=== PATIENT | female | born 1960 | race Caucasian/White ===

== ENCOUNTER 2021-02-20 23:54 | Emergency (ER) | payer BC ==
[~2021-02-20] VITALS: Ht 172.7 cm; Wt 110.0 kg
[2021-02-21 00:01] VITALS: BP 179/84
[2021-02-21] MEDS ORDERED: diphenhydrAMINE 25mg capsule PO ONE (00:05)
[2021-02-21] MEDS ORDERED: AZIT-63 PO (02:12)
== END 2021-02-21 02:17 | disposition home or self-care (01) ==
LOC: ER 23:55
DX: K04.7 Periapical abscess without sinus (principal); T36.95XA Adverse effect of unspecified systemic antibiotic, initial encounter; K08.89 Other specified disorders of teeth and supporting structures; Z88.0 Allergy status to penicillin; Z88.1 Allergy status to other antibiotic agents; Z79.2 Long term (current) use of antibiotics; Y92.89 Other specified places as the place of occurrence of the external cause
CPT/HCPCS: 99283; Q0163